=== PATIENT | female | born 1985 | race Caucasian/White ===

== ENCOUNTER 2016-08-18 23:21 | Emergency (ER) | payer MEDICAID ==
[2016-08-19 03:32] VITALS: BP 103/71
== END 2016-08-19 03:32 | disposition home or self-care (01) ==
LOC: ED 23:21
DX: H83.09 Labyrinthitis, unspecified ear (principal); R10.13 Epigastric pain; R11.10 Vomiting, unspecified
CPT/HCPCS: 82962; C9113; J2405; J3490; J7030; J8597; Q0162

== ENCOUNTER 2016-09-27 20:42 | Emergency (ER) | payer MEDICAID ==
[2016-09-27 22:32] VITALS: BP 124/79
== END 2016-09-27 22:32 | disposition home or self-care (01) ==
LOC: ED 20:42
DX: G56.02 Carpal tunnel syndrome, left upper limb (principal)
CPT/HCPCS: 82962